=== PATIENT | female | born 1970 | race Caucasian/White ===

== ENCOUNTER 2020-06-09 15:21 | Inpatient (IN) | payer MEDICAID ==
[~2020-06-09] VITALS: Ht 167.6 cm; Wt 91.4 kg
[~2020-06-09 15:21] MED LIST: ADV250 IH; ALBU8HFA4 IH; ARIP5TAB8 PO; CLOZ100T32 PO; DIVA-112 PO; FENO145T PO; LEVO50TA4 PO; METF-960 PO; [UNRECOGNIZED DRUG - REMARK]
[2020-06-09] MEDS ORDERED: PNEUMOCOCCAL VACCINE POLYVALENT 0.5 ML VIAL [PPSV23] IM ONE (21:15)
[2020-06-09 21:24] VITALS: BP 118/76
[2020-06-09 21:55] LABS: GLUCOMETER DEV NAME(LOC) BV2S.; GLUCOSE,POINT OF CARE 121 MG/DL (70-110)
[2020-06-09] MEDS: ZOLPIDEM TARTRATE 10 MG TABLET PO PRN (21:56)
[2020-06-10] MEDS ORDERED: GLUCAGON,HUMAN RECOMBINANT 1 MG VIAL IM PRN (00:45)
[2020-06-10 03:09] VITALS: BP 121/76
[2020-06-10] MEDS: LORazepam 2 MG TABLET PO PRN ×2 (04:45→13:11)
[2020-06-10] MEDS: LEVOTHYROXINE SODIUM 50 MCG TABLET PO SCH (06:32)
[2020-06-10] MEDS: MetFORMIN HCL 500 MG TABLET PO SCH ×2 (06:32→17:10)
[2020-06-10 06:37] LABS: GLUCOMETER DEV NAME(LOC) BV2S.; GLUCOSE,POINT OF CARE 100 MG/DL (70-110)
[2020-06-10 07:42] LABS: BASOPHILS % (AUTO) 1.2 % (0.0-2.0); EOSINOPHILS % (AUTO) 1.1 % (1.0-6.0); HEMATOCRIT 36.6 % (36-46); HEMOGLOBIN 12.4 g/dL (12.0-16.0); LYMPHOCYTES # (AUTO) 2.3 K/uL (1.0-4.8); LYMPHOCYTES % (AUTO) 34.8 % (22.0-44.0); MEAN CORPUSCULAR HEMOGLOBIN 30.5 pg (26.0-34.0); MEAN CORPUSCULAR HGB CONC 34.1 G/dL (31.0-37.0); MEAN CORPUSCULAR VOLUME 90 fL (80-100); MONOCYTES # (AUTO) 1.3 K/uL (0.1-1.0); MONOCYTES % (AUTO) 19.7 % (2.0-9.0); NEUTROPHILS # (AUTO) 2.8 K/uL (1.8-7.7); NEUTROPHILS % (AUTO) 43.2 % (40.0-70.0); PLATELET COUNT (AUTO) 249 K/uL (150-450); RED BLOOD CELL COUNT(AUTO) 4.08 MIL/uL (4.00-5.20); RED CELL DISTRIBUTION WIDTH 14.5 % (11.5-14.5)
[2020-06-10] MEDS ORDERED: CloNIDine HCL 0.1 MG TABLET PO PRN (07:45)
[2020-06-10] MEDS ORDERED: ACETAMINOPHEN 325 MG TABLET PO PRN (07:45)
[2020-06-10] MEDS ORDERED: GuaiFENesin/D-METHORPHAN [SUGAR-FREE] 200-20MG/10 ML SYRUP UDCUP PO PRN (07:45)
[2020-06-10] MEDS ORDERED: MAG HYDROX/AL HYDROX/SIMETH ES 30 ML SUSPENSION UDCUP PO PRN (07:45)
[2020-06-10] MEDS ORDERED: LOPERAMIDE HCL 2 MG CAPSULE PO PRN (07:45)
[2020-06-10] MEDS ORDERED: NICOTINE 14 MG/24 HOUR PATCH TD PRN (07:45)
[2020-06-10] MEDS ORDERED: ONDANSETRON HCL 4 MG TABLET PO PRN (07:45)
[2020-06-10] MEDS ORDERED: PETROLATUM,WHITE 28 GM JELLY TP PRN (07:45)
[2020-06-10] MEDS ORDERED: ALBUTEROL SULFATE HFA 90 MCG/PUFF 8 GM INHALER IH PRN (07:45)
[2020-06-10] MEDS ORDERED: MAGNESIUM HYDROXIDE SUSPENSION 30 ML UDCUP PO PRN (07:45)
[2020-06-10] MEDS ORDERED: DOCUSATE SODIUM 100 MG CAPSULE PO PRN (07:45)
[2020-06-10 08:21] LABS: ALANINE AMINOTRANSFERASE 16 U/L (12-78); ALBUMIN 3.3 g/dL (3.4-5.0); ALKALINE PHOSPHATASE 54 U/L (46-116); ANION GAP 8 mmol/L (8-16); ASPARTATE AMINOTRANSFERASE 11 U/L (15-37); BILIRUBIN,TOTAL 0.2 mg/dL (0.1-1.0); CARBON DIOXIDE 30 mmol/L (22-29); CHLORIDE 99 mmol/L (98-107); CHOL/HDL RATIO 3.2 (3.9-5.7); CHOLESTEROL 130 mg/dL (131-200); CREATININE 0.53 mg/dL (0.60-1.30); FREE T4 (FREE THYROXINE) 0.93 ng/dL (0.76-1.46); GLOMERULAR FILTR. RATE CALC > 60 mL/min (>60); GLUCOSE,RANDOM 107 mg/dL (70-110); HCG,QUANTITATIVE 4 mIU/mL (0-6); HDL CHOLESTEROL 41 mg/dL (40-60); LDL CHOL (CALC.) 66 mg/dL (0-130); POTASSIUM 3.7 mmol/L (3.5-5.1); SODIUM SERUM 137 mmol/L (136-145); THYROID STIMULATING HORMONE 7.52 uIU/mL (0.36-3.74); TOTAL PROTEIN, SERUM 6.8 g/dL (6.4-8.2); TRIGLYCERIDES 115 mg/dL (15-150); UREA NITROGEN, BLOOD 11 mg/dL (7-18)
[2020-06-10] MEDS: FLUTICASONE/SALMETEROL 250 MCG-50 MCG/INH DISKUS INHALER [28] IH SCH ×2 (08:53→20:22)
[2020-06-10] MEDS: INSULIN LISPRO 100 UNITS/ML SQ PRN (10:55)
[2020-06-10 11:12] LABS: GLUCOMETER DEV NAME(LOC) BV2S.; GLUCOSE,POINT OF CARE 154 MG/DL (70-110)
[2020-06-10] MEDS ORDERED: ALBU8HFA IH (11:23)
[2020-06-10] MEDS: DIVALPROEX SODIUM 500 MG DR TABLET PO SCH ×2 (12:28→20:22)
[2020-06-10] MEDS: CloZAPine 100 MG TABLET PO SCH ×2 (12:28→20:22)
[2020-06-10 16:11] VITALS: BP 136/73
[2020-06-10 17:37] LABS: GLUCOMETER DEV NAME(LOC) BV2S.; GLUCOSE,POINT OF CARE 138 MG/DL (70-110)
[2020-06-10] MEDS: FENOFIBRATE 48 MG TABLET PO SCH (20:22)
[2020-06-10 22:22] LABS: GLUCOMETER DEV NAME(LOC) BV2S.; GLUCOSE,POINT OF CARE 112 MG/DL (70-110)
[2020-06-11] MEDS: MetFORMIN HCL 500 MG TABLET PO SCH ×2 (06:28→16:48)
[2020-06-11] MEDS: LEVOTHYROXINE SODIUM 50 MCG TABLET PO SCH (06:28)
[2020-06-11 06:38] LABS: GLUCOMETER DEV NAME(LOC) BV2S.; GLUCOSE,POINT OF CARE 110 MG/DL (70-110)
[2020-06-11 06:42] VITALS: BP 128/82
[2020-06-11 08:15] VITALS: BP 100/66
[2020-06-11] MEDS: DIVALPROEX SODIUM 500 MG DR TABLET PO SCH ×2 (08:35→20:13)
[2020-06-11] MEDS: FLUTICASONE/SALMETEROL 250 MCG-50 MCG/INH DISKUS INHALER [28] IH SCH ×2 (08:36→20:12)
[2020-06-11] MEDS: CloZAPine 100 MG TABLET PO SCH ×2 (08:36→20:12)
[2020-06-11 13:34] LABS: GLUCOMETER DEV NAME(LOC) BV2S.; GLUCOSE,POINT OF CARE 131 MG/DL (70-110)
[2020-06-11] MEDS: LORazepam 2 MG TABLET PO PRN (17:04)
[2020-06-11] MEDS: INSULIN LISPRO 100 UNITS/ML SQ PRN (17:17)
[2020-06-11 17:27] VITALS: BP 113/72
[2020-06-11] MEDS: QUEtiapine FUMARATE 100 MG TABLET PO PRN (19:08)
[2020-06-11] MEDS: FENOFIBRATE 48 MG TABLET PO SCH (20:13)
[2020-06-11 20:28] LABS: GLUCOMETER DEV NAME(LOC) BV2S.; GLUCOSE,POINT OF CARE 112 MG/DL (70-110)
[2020-06-12 02:27] VITALS: BP 119/70
[2020-06-12] MEDS: MetFORMIN HCL 500 MG TABLET PO SCH ×2 (06:33→17:15)
[2020-06-12] MEDS: LEVOTHYROXINE SODIUM 50 MCG TABLET PO SCH (06:33)
[2020-06-12 06:41] LABS: GLUCOMETER DEV NAME(LOC) BV2S.; GLUCOSE,POINT OF CARE 104 MG/DL (70-110)
[2020-06-12] MEDS: FLUTICASONE/SALMETEROL 250 MCG-50 MCG/INH DISKUS INHALER [28] IH SCH ×2 (08:20→20:20)
[2020-06-12] MEDS: DIVALPROEX SODIUM 500 MG DR TABLET PO SCH ×2 (08:20→20:19)
[2020-06-12] MEDS: CloZAPine 100 MG TABLET PO SCH ×2 (08:20→20:19)
[2020-06-12 09:16] VITALS: BP 95/66
[2020-06-12] MEDS: INSULIN LISPRO 100 UNITS/ML SQ PRN (10:53)
[2020-06-12 13:59] LABS: GLUCOMETER DEV NAME(LOC) BV2S.; GLUCOSE,POINT OF CARE 186 MG/DL (70-110)
[2020-06-12 16:46] LABS: GLUCOMETER DEV NAME(LOC) BV2S.; GLUCOSE,POINT OF CARE 111 MG/DL (70-110)
[2020-06-12 17:09] VITALS: BP 117/67
[2020-06-12] MEDS: FENOFIBRATE 48 MG TABLET PO SCH (20:20)
[2020-06-12 20:44] LABS: GLUCOMETER DEV NAME(LOC) BV2S.; GLUCOSE,POINT OF CARE 111 MG/DL (70-110)
[2020-06-12] MEDS: ZOLPIDEM TARTRATE 10 MG TABLET PO PRN (21:58)
[2020-06-13 02:30] VITALS: BP 120/72
[2020-06-13] MEDS: QUEtiapine FUMARATE 100 MG TABLET PO PRN (02:34)
[2020-06-13 06:23] LABS: GLUCOMETER DEV NAME(LOC) BV2S.; GLUCOSE,POINT OF CARE 91 MG/DL (70-110)
[2020-06-13] MEDS: LEVOTHYROXINE SODIUM 50 MCG TABLET PO SCH (06:30)
[2020-06-13] MEDS: MetFORMIN HCL 500 MG TABLET PO SCH ×2 (06:42→16:25)
[2020-06-13] MEDS: CloZAPine 100 MG TABLET PO SCH ×2 (08:30→20:37)
[2020-06-13] MEDS: DIVALPROEX SODIUM 500 MG DR TABLET PO SCH ×2 (08:31→20:43)
[2020-06-13 08:38] VITALS: BP 106/66
[2020-06-13] MEDS: FLUTICASONE/SALMETEROL 250 MCG-50 MCG/INH DISKUS INHALER [28] IH SCH ×2 (09:00→20:38)
[2020-06-13 11:45] LABS: GLUCOMETER DEV NAME(LOC) BV2S.; GLUCOSE,POINT OF CARE 96 MG/DL (70-110)
[2020-06-13 16:05] VITALS: BP 108/67
[2020-06-13] MEDS: INSULIN LISPRO 100 UNITS/ML SQ PRN (17:05)
[2020-06-13] MEDS: LORazepam 2 MG TABLET PO PRN (17:36)
[2020-06-13] MEDS: FENOFIBRATE 48 MG TABLET PO SCH (20:37)
[2020-06-13] MEDS: ZOLPIDEM TARTRATE 10 MG TABLET PO PRN (20:52)
[2020-06-13 21:17] LABS: GLUCOMETER DEV NAME(LOC) BV2S.; GLUCOSE,POINT OF CARE 198 MG/DL (70-110)
[2020-06-14] MEDS: LEVOTHYROXINE SODIUM 50 MCG TABLET PO SCH (06:40)
[2020-06-14] MEDS: MetFORMIN HCL 500 MG TABLET PO SCH ×2 (06:40→16:03)
[2020-06-14 06:46] VITALS: BP 113/68
[2020-06-14 08:09] VITALS: BP 128/80
[2020-06-14] MEDS: DIVALPROEX SODIUM 500 MG DR TABLET PO SCH ×2 (08:17→20:02)
[2020-06-14] MEDS: CloZAPine 100 MG TABLET PO SCH ×2 (08:17→20:01)
[2020-06-14] MEDS: FLUTICASONE/SALMETEROL 250 MCG-50 MCG/INH DISKUS INHALER [28] IH SCH ×2 (08:18→19:59)
[2020-06-14] MEDS: INSULIN LISPRO 100 UNITS/ML SQ PRN ×2 (10:55→17:12)
[2020-06-14 11:16] LABS: GLUCOMETER DEV NAME(LOC) BV2S.; GLUCOSE,POINT OF CARE 178 MG/DL (70-110)
[2020-06-14] MEDS: LORazepam 2 MG TABLET PO PRN (12:43)
[2020-06-14 16:15] VITALS: BP 123/70
[2020-06-14 16:42] LABS: GLUCOMETER DEV NAME(LOC) BV2S.; GLUCOSE,POINT OF CARE 179 MG/DL (70-110)
[2020-06-14] MEDS: FENOFIBRATE 48 MG TABLET PO SCH (20:02)
[2020-06-14 20:08] LABS: GLUCOMETER DEV NAME(LOC) BV2S.; GLUCOSE,POINT OF CARE 116 MG/DL (70-110)
[2020-06-15 01:56] VITALS: BP 125/69
[2020-06-15] MEDS: MetFORMIN HCL 500 MG TABLET PO SCH ×2 (06:31→16:45)
[2020-06-15] MEDS: LEVOTHYROXINE SODIUM 50 MCG TABLET PO SCH (06:31)
[2020-06-15 06:41] LABS: GLUCOMETER DEV NAME(LOC) BV2S.; GLUCOSE,POINT OF CARE 92 MG/DL (70-110)
[2020-06-15 08:13] VITALS: BP 130/68
[2020-06-15] MEDS: DIVALPROEX SODIUM 500 MG DR TABLET PO SCH ×2 (08:24→19:52)
[2020-06-15] MEDS: CloZAPine 100 MG TABLET PO SCH ×2 (08:24→19:51)
[2020-06-15] MEDS: FLUTICASONE/SALMETEROL 250 MCG-50 MCG/INH DISKUS INHALER [28] IH SCH ×2 (08:24→19:50)
[2020-06-15] MEDS: LORazepam 2 MG TABLET PO PRN ×2 (10:31→21:23)
[2020-06-15 13:19] LABS: GLUCOMETER DEV NAME(LOC) BV2S.; GLUCOSE,POINT OF CARE 130 MG/DL (70-110)
[2020-06-15 16:21] VITALS: BP 102/65
[2020-06-15 16:47] LABS: GLUCOMETER DEV NAME(LOC) BV2S.; GLUCOSE,POINT OF CARE 157 MG/DL (70-110)
[2020-06-15] MEDS: INSULIN LISPRO 100 UNITS/ML SQ PRN (16:59)
[2020-06-15] MEDS: FENOFIBRATE 48 MG TABLET PO SCH (19:51)
[2020-06-15 20:02] LABS: GLUCOMETER DEV NAME(LOC) BV2S.; GLUCOSE,POINT OF CARE 107 MG/DL (70-110)
[2020-06-16 02:11] VITALS: BP 122/71
[2020-06-16] MEDS: MetFORMIN HCL 500 MG TABLET PO SCH ×2 (06:55→16:30)
[2020-06-16] MEDS: LEVOTHYROXINE SODIUM 50 MCG TABLET PO SCH (06:55)
[2020-06-16 07:01] LABS: GLUCOMETER DEV NAME(LOC) BV2S.; GLUCOSE,POINT OF CARE 101 MG/DL (70-110)
[2020-06-16 08:05] VITALS: BP 106/59
[2020-06-16] MEDS: FLUTICASONE/SALMETEROL 250 MCG-50 MCG/INH DISKUS INHALER [28] IH SCH ×2 (08:39→20:44)
[2020-06-16] MEDS: DIVALPROEX SODIUM 500 MG DR TABLET PO SCH ×2 (08:39→20:43)
[2020-06-16] MEDS: CloZAPine 100 MG TABLET PO SCH ×2 (08:39→20:44)
[2020-06-16 14:03] LABS: GLUCOMETER DEV NAME(LOC) BV2S.; GLUCOSE,POINT OF CARE 110 MG/DL (70-110)
[2020-06-16 16:05] VITALS: BP 136/74
[2020-06-16 16:45] LABS: GLUCOMETER DEV NAME(LOC) BV2S.; GLUCOSE,POINT OF CARE 137 MG/DL (70-110)
[2020-06-16] MEDS: FENOFIBRATE 48 MG TABLET PO SCH (20:44)
[2020-06-16 21:01] LABS: GLUCOMETER DEV NAME(LOC) BV2S.; GLUCOSE,POINT OF CARE 131 MG/DL (70-110)
[2020-06-17] MEDS: LEVOTHYROXINE SODIUM 50 MCG TABLET PO SCH (06:23)
[2020-06-17] MEDS: MetFORMIN HCL 500 MG TABLET PO SCH ×2 (06:23→17:10)
[2020-06-17 06:32] LABS: GLUCOMETER DEV NAME(LOC) BV2S.; GLUCOSE,POINT OF CARE 106 MG/DL (70-110)
[2020-06-17 07:18] VITALS: BP 128/83
[2020-06-17 08:12] LABS: BASOPHILS % (AUTO) 1.4 % (0.0-2.0); EOSINOPHILS % (AUTO) 1.9 % (1.0-6.0); HEMATOCRIT 37.7 % (36-46); HEMOGLOBIN 12.7 g/dL (12.0-16.0); LYMPHOCYTES # (AUTO) 2.6 K/uL (1.0-4.8); LYMPHOCYTES % (AUTO) 41.1 % (22.0-44.0); MEAN CORPUSCULAR HEMOGLOBIN 30.2 pg (26.0-34.0); MEAN CORPUSCULAR HGB CONC 33.6 G/dL (31.0-37.0); MEAN CORPUSCULAR VOLUME 90 fL (80-100); MONOCYTES % (AUTO) 16.4 % (2.0-9.0); NEUTROPHILS # (AUTO) 2.5 K/uL (1.8-7.7); NEUTROPHILS % (AUTO) 39.2 % (40.0-70.0); PLATELET COUNT (AUTO) 293 K/uL (150-450); RED BLOOD CELL COUNT(AUTO) 4.19 MIL/uL (4.00-5.20); RED CELL DISTRIBUTION WIDTH 14.2 % (11.5-14.5)
[2020-06-17] MEDS: DIVALPROEX SODIUM 500 MG DR TABLET PO SCH ×2 (08:25→20:07)
[2020-06-17] MEDS: CloZAPine 100 MG TABLET PO SCH ×2 (08:25→20:07)
[2020-06-17] MEDS: FLUTICASONE/SALMETEROL 250 MCG-50 MCG/INH DISKUS INHALER [28] IH SCH ×2 (08:25→20:07)
[2020-06-17 08:29] VITALS: BP 102/65
[2020-06-17] MEDS: INSULIN LISPRO 100 UNITS/ML SQ PRN (10:51)
[2020-06-17] MEDS: LORazepam 2 MG TABLET PO PRN ×2 (11:47→20:07)
[2020-06-17 13:35] LABS: GLUCOMETER DEV NAME(LOC) BV2S.; GLUCOSE,POINT OF CARE 146 MG/DL (70-110)
[2020-06-17 16:31] LABS: GLUCOMETER DEV NAME(LOC) BV2S.; GLUCOSE,POINT OF CARE 106 MG/DL (70-110)
[2020-06-17 16:52] VITALS: BP 121/75
[2020-06-17] MEDS: FENOFIBRATE 48 MG TABLET PO SCH (20:07)
[2020-06-17 21:10] LABS: GLUCOMETER DEV NAME(LOC) BV2S.; GLUCOSE,POINT OF CARE 107 MG/DL (70-110)
[2020-06-18 06:48] VITALS: BP 114/75
[2020-06-18 07:03] LABS: GLUCOMETER DEV NAME(LOC) BV2S.; GLUCOSE,POINT OF CARE 109 MG/DL (70-110)
[2020-06-18] MEDS: LEVOTHYROXINE SODIUM 50 MCG TABLET PO SCH (07:15)
[2020-06-18] MEDS: MetFORMIN HCL 500 MG TABLET PO SCH ×2 (07:15→16:56)
[2020-06-18 08:25] VITALS: BP 100/62
[2020-06-18] MEDS: DIVALPROEX SODIUM 500 MG DR TABLET PO SCH ×2 (09:11→20:07)
[2020-06-18] MEDS: FLUTICASONE/SALMETEROL 250 MCG-50 MCG/INH DISKUS INHALER [28] IH SCH ×2 (09:11→20:08)
[2020-06-18] MEDS: CloZAPine 100 MG TABLET PO SCH ×2 (09:11→20:08)
[2020-06-18 11:09] LABS: GLUCOMETER DEV NAME(LOC) BV2S.; GLUCOSE,POINT OF CARE 107 MG/DL (70-110)
[2020-06-18 16:08] VITALS: BP 110/63
[2020-06-18] MEDS: INSULIN LISPRO 100 UNITS/ML SQ PRN (16:29)
[2020-06-18 16:41] LABS: GLUCOMETER DEV NAME(LOC) BV2S.; GLUCOSE,POINT OF CARE 160 MG/DL (70-110)
[2020-06-18] MEDS: FENOFIBRATE 48 MG TABLET PO SCH (20:07)
[2020-06-18 20:54] LABS: GLUCOMETER DEV NAME(LOC) BV2S.; GLUCOSE,POINT OF CARE 103 MG/DL (70-110)
[2020-06-18] MEDS: ZOLPIDEM TARTRATE 10 MG TABLET PO PRN (21:32)
[2020-06-19 02:33] VITALS: BP 116/68
[2020-06-19 07:09] LABS: GLUCOMETER DEV NAME(LOC) BV2S.; GLUCOSE,POINT OF CARE 97 MG/DL (70-110)
[2020-06-19] MEDS: LEVOTHYROXINE SODIUM 50 MCG TABLET PO SCH (07:09)
[2020-06-19] MEDS: MetFORMIN HCL 500 MG TABLET PO SCH ×2 (07:09→16:55)
[2020-06-19 08:22] VITALS: BP 100/60
[2020-06-19] MEDS: CloZAPine 100 MG TABLET PO SCH ×2 (09:09→20:09)
[2020-06-19] MEDS: DIVALPROEX SODIUM 500 MG DR TABLET PO SCH ×2 (09:09→20:09)
[2020-06-19] MEDS: FLUTICASONE/SALMETEROL 250 MCG-50 MCG/INH DISKUS INHALER [28] IH SCH ×2 (09:18→20:11)
[2020-06-19 13:39] LABS: GLUCOMETER DEV NAME(LOC) BV2S.; GLUCOSE,POINT OF CARE 129 MG/DL (70-110)
[2020-06-19 16:01] VITALS: BP 137/79
[2020-06-19] MEDS: LORazepam 2 MG TABLET PO PRN (16:12)
[2020-06-19 16:27] LABS: GLUCOMETER DEV NAME(LOC) BV2S.; GLUCOSE,POINT OF CARE 121 MG/DL (70-110)
[2020-06-19] MEDS: FENOFIBRATE 48 MG TABLET PO SCH (20:09)
[2020-06-19 21:08] LABS: GLUCOMETER DEV NAME(LOC) BV2S.; GLUCOSE,POINT OF CARE 128 MG/DL (70-110)
[2020-06-20 04:48] VITALS: BP 128/68
[2020-06-20 05:19] LABS: GLUCOMETER DEV NAME(LOC) BV2S.; GLUCOSE,POINT OF CARE 104 MG/DL (70-110)
[2020-06-20] MEDS: LEVOTHYROXINE SODIUM 50 MCG TABLET PO SCH (06:35)
[2020-06-20] MEDS: MetFORMIN HCL 500 MG TABLET PO SCH ×2 (06:48→16:40)
[2020-06-20 08:49] VITALS: BP 112/63
[2020-06-20] MEDS: CloZAPine 100 MG TABLET PO SCH ×2 (09:01→19:51)
[2020-06-20] MEDS: DIVALPROEX SODIUM 500 MG DR TABLET PO SCH ×2 (09:02→19:52)
[2020-06-20] MEDS: FLUTICASONE/SALMETEROL 250 MCG-50 MCG/INH DISKUS INHALER [28] IH SCH ×2 (09:03→20:11)
[2020-06-20] MEDS: INSULIN LISPRO 100 UNITS/ML SQ PRN ×2 (12:39→20:46)
[2020-06-20] MEDS: LORazepam 2 MG TABLET PO PRN (12:41)
[2020-06-20 12:43] LABS: GLUCOMETER DEV NAME(LOC) BV2S.; GLUCOSE,POINT OF CARE 170 MG/DL (70-110)
[2020-06-20 16:22] LABS: GLUCOMETER DEV NAME(LOC) BV2S.; GLUCOSE,POINT OF CARE 104 MG/DL (70-110)
[2020-06-20 16:47] VITALS: BP 126/73
[2020-06-20] MEDS: FENOFIBRATE 48 MG TABLET PO SCH (20:11)
[2020-06-20 20:52] LABS: GLUCOMETER DEV NAME(LOC) BV2S.; GLUCOSE,POINT OF CARE 182 MG/DL (70-110)
[2020-06-21] MEDS: LEVOTHYROXINE SODIUM 50 MCG TABLET PO SCH (06:25)
[2020-06-21 06:32] LABS: GLUCOMETER DEV NAME(LOC) BV2S.; GLUCOSE,POINT OF CARE 103 MG/DL (70-110)
[2020-06-21] MEDS: MetFORMIN HCL 500 MG TABLET PO SCH ×2 (06:42→16:50)
[2020-06-21] MEDS: DIVALPROEX SODIUM 500 MG DR TABLET PO SCH ×2 (08:15→19:48)
[2020-06-21] MEDS: CloZAPine 100 MG TABLET PO SCH ×2 (08:15→19:48)
[2020-06-21] MEDS: FLUTICASONE/SALMETEROL 250 MCG-50 MCG/INH DISKUS INHALER [28] IH SCH ×2 (08:16→20:39)
[2020-06-21 08:31] VITALS: BP 116/67
[2020-06-21] MEDS: INSULIN LISPRO 100 UNITS/ML SQ PRN ×3 (11:31→20:42)
[2020-06-21 11:38] LABS: GLUCOMETER DEV NAME(LOC) BV2S.; GLUCOSE,POINT OF CARE 151 MG/DL (70-110)
[2020-06-21] MEDS: LORazepam 2 MG TABLET PO PRN ×2 (12:28→16:50)
[2020-06-21 16:10] VITALS: BP 125/76
[2020-06-21 16:25] LABS: GLUCOMETER DEV NAME(LOC) BV2S.; GLUCOSE,POINT OF CARE 188 MG/DL (70-110)
[2020-06-21] MEDS: FENOFIBRATE 48 MG TABLET PO SCH (19:47)
[2020-06-21 20:06] LABS: GLUCOMETER DEV NAME(LOC) BV2S.; GLUCOSE,POINT OF CARE 144 MG/DL (70-110)
[2020-06-22 04:02] VITALS: BP 117/75
[2020-06-22 06:05] LABS: GLUCOMETER DEV NAME(LOC) BV2S.; GLUCOSE,POINT OF CARE 105 MG/DL (70-110)
[2020-06-22] MEDS: LEVOTHYROXINE SODIUM 50 MCG TABLET PO SCH (06:36)
[2020-06-22] MEDS: MetFORMIN HCL 500 MG TABLET PO SCH ×2 (06:36→16:38)
[2020-06-22] MEDS: FLUTICASONE/SALMETEROL 250 MCG-50 MCG/INH DISKUS INHALER [28] IH SCH ×2 (08:13→19:59)
[2020-06-22] MEDS: DIVALPROEX SODIUM 500 MG DR TABLET PO SCH ×2 (08:13→20:00)
[2020-06-22] MEDS: CloZAPine 100 MG TABLET PO SCH ×2 (08:13→20:00)
[2020-06-22 09:05] VITALS: BP 103/66
[2020-06-22] MEDS: LORazepam 2 MG TABLET PO PRN ×2 (10:00→15:44)
[2020-06-22 13:00] LABS: GLUCOMETER DEV NAME(LOC) BV2S.; GLUCOSE,POINT OF CARE 127 MG/DL (70-110)
[2020-06-22 16:17] VITALS: BP 118/81
[2020-06-22 16:20] LABS: GLUCOMETER DEV NAME(LOC) BV2S.; GLUCOSE,POINT OF CARE 152 MG/DL (70-110)
[2020-06-22] MEDS: INSULIN LISPRO 100 UNITS/ML SQ PRN ×2 (17:21→21:15)
[2020-06-22] MEDS: FENOFIBRATE 48 MG TABLET PO SCH (20:00)
[2020-06-22 20:18] LABS: GLUCOMETER DEV NAME(LOC) BV2S.; GLUCOSE,POINT OF CARE 142 MG/DL (70-110)
[2020-06-22] MEDS: ZOLPIDEM TARTRATE 10 MG TABLET PO PRN (22:08)
[2020-06-23] MEDS: LEVOTHYROXINE SODIUM 50 MCG TABLET PO SCH (06:04)
[2020-06-23] MEDS: MetFORMIN HCL 500 MG TABLET PO SCH ×2 (06:04→16:41)
[2020-06-23 06:25] LABS: GLUCOMETER DEV NAME(LOC) BV2S.; GLUCOSE,POINT OF CARE 116 MG/DL (70-110)
[2020-06-23] MEDS: FLUTICASONE/SALMETEROL 250 MCG-50 MCG/INH DISKUS INHALER [28] IH SCH ×2 (08:21→20:19)
[2020-06-23] MEDS: DIVALPROEX SODIUM 500 MG DR TABLET PO SCH ×2 (08:22→20:18)
[2020-06-23] MEDS: CloZAPine 100 MG TABLET PO SCH ×2 (08:22→20:18)
[2020-06-23] MEDS: INSULIN LISPRO 100 UNITS/ML SQ PRN ×2 (11:03→16:35)
[2020-06-23 12:51] LABS: GLUCOMETER DEV NAME(LOC) BV2S.; GLUCOSE,POINT OF CARE 227 MG/DL (70-110)
[2020-06-23] MEDS ORDERED: TUBERCULIN, PURIFIED PROTEIN DERIVATIVE 5 TU/0.1 ML SYRINGE ID ONE (13:15)
[2020-06-23 16:26] VITALS: BP 102/69
[2020-06-23 16:44] LABS: GLUCOMETER DEV NAME(LOC) BV2S.; GLUCOSE,POINT OF CARE 151 MG/DL (70-110)
[2020-06-23] MEDS: LORazepam 2 MG TABLET PO PRN (18:02)
[2020-06-23] MEDS: FENOFIBRATE 48 MG TABLET PO SCH (20:20)
[2020-06-23 23:08] LABS: GLUCOMETER DEV NAME(LOC) BV2S.; GLUCOSE,POINT OF CARE 133 MG/DL (70-110)
[2020-06-24 06:21] LABS: GLUCOMETER DEV NAME(LOC) BV2S.; GLUCOSE,POINT OF CARE 117 MG/DL (70-110)
[2020-06-24] MEDS: LEVOTHYROXINE SODIUM 50 MCG TABLET PO SCH (06:33)
[2020-06-24] MEDS: MetFORMIN HCL 500 MG TABLET PO SCH ×2 (06:49→16:49)
[2020-06-24 08:28] VITALS: BP 107/70
[2020-06-24] MEDS: DIVALPROEX SODIUM 500 MG DR TABLET PO SCH ×2 (08:55→20:26)
[2020-06-24] MEDS: FLUTICASONE/SALMETEROL 250 MCG-50 MCG/INH DISKUS INHALER [28] IH SCH ×2 (08:55→20:26)
[2020-06-24] MEDS: CloZAPine 100 MG TABLET PO SCH ×2 (08:55→20:26)
[2020-06-24] MEDS: LORazepam 2 MG TABLET PO PRN (13:21)
[2020-06-24 13:33] LABS: GLUCOMETER DEV NAME(LOC) BV2S.; GLUCOSE,POINT OF CARE 99 MG/DL (70-110)
[2020-06-24 16:29] VITALS: BP 107/82
[2020-06-24] MEDS: INSULIN LISPRO 100 UNITS/ML SQ PRN (16:36)
[2020-06-24 16:37] LABS: GLUCOMETER DEV NAME(LOC) BV2S.; GLUCOSE,POINT OF CARE 150 MG/DL (70-110)
[2020-06-24] MEDS: FENOFIBRATE 48 MG TABLET PO SCH (20:26)
[2020-06-24 21:59] LABS: GLUCOMETER DEV NAME(LOC) BV2S.; GLUCOSE,POINT OF CARE 125 MG/DL (70-110)
[2020-06-25 05:56] VITALS: BP 102/63
[2020-06-25 06:06] LABS: GLUCOMETER DEV NAME(LOC) BV2S.; GLUCOSE,POINT OF CARE 94 MG/DL (70-110)
[2020-06-25] MEDS: LEVOTHYROXINE SODIUM 50 MCG TABLET PO SCH (06:42)
[2020-06-25] MEDS: MetFORMIN HCL 500 MG TABLET PO SCH ×2 (06:42→16:45)
[2020-06-25 08:23] LABS: EOSINOPHILS % (AUTO) 2.2 % (1.0-6.0); HEMATOCRIT 36.6 % (36-46); HEMOGLOBIN 12.5 g/dL (12.0-16.0); MEAN CORPUSCULAR HEMOGLOBIN 30.9 pg (26.0-34.0); MEAN CORPUSCULAR HGB CONC 34.1 G/dL (31.0-37.0); MEAN CORPUSCULAR VOLUME 91 fL (80-100); MONOCYTES # (AUTO) 0.9 K/uL (0.1-1.0); MONOCYTES % (AUTO) 13.5 % (2.0-9.0); NEUTROPHILS # (AUTO) 2.5 K/uL (1.8-7.7); NEUTROPHILS % (AUTO) 37.3 % (40.0-70.0); PLATELET COUNT (AUTO) 296 K/uL (150-450); RED BLOOD CELL COUNT(AUTO) 4.04 MIL/uL (4.00-5.20); RED CELL DISTRIBUTION WIDTH 14.1 % (11.5-14.5)
[2020-06-25] MEDS: CloZAPine 100 MG TABLET PO SCH (09:09)
[2020-06-25] MEDS: DIVALPROEX SODIUM 500 MG DR TABLET PO SCH (09:09)
[2020-06-25] MEDS: FLUTICASONE/SALMETEROL 250 MCG-50 MCG/INH DISKUS INHALER [28] IH SCH (09:09)
[2020-06-25 09:48] VITALS: BP 100/60
[2020-06-25] MEDS: INSULIN LISPRO 100 UNITS/ML SQ PRN ×2 (11:11→16:17)
[2020-06-25] MEDS ORDERED: FENO48TA20 PO (11:33)
[2020-06-25] MEDS ORDERED: CLOZ100T32 PO ×2 (11:33)
[2020-06-25] MEDS ORDERED: DIVA-112 PO (11:33)
[2020-06-25 12:18] LABS: GLUCOMETER DEV NAME(LOC) BV2S.; GLUCOSE,POINT OF CARE 179 MG/DL (70-110)
[2020-06-25 16:21] VITALS: BP 112/68
[2020-06-25 16:26] LABS: GLUCOMETER DEV NAME(LOC) BV2S.; GLUCOSE,POINT OF CARE 157 MG/DL (70-110)
== END 2020-06-25 18:27 | disposition home or self-care (01) | DRG 885 ==
LOC: B2S 20:56
PROVIDERS: ADMIT Psychiatry & Neurology Child & Adolescent Psychiatry; ATTEND Psychiatry & Neurology Child & Adolescent Psychiatry
DX: F25.1 Schizoaffective disorder, depressive type (principal); R45.851 Suicidal ideations; T71.162A Asphyxiation due to hanging, intentional self-harm, initial encounter; I10 Essential (primary) hypertension; E78.5 Hyperlipidemia, unspecified; Z59.0 Homelessness; J45.909 Unspecified asthma, uncomplicated; E11.9 Type 2 diabetes mellitus without complications; E03.9 Hypothyroidism, unspecified
CPT/HCPCS: 84436; 84439; 84443; 87081; J3535